=== PATIENT | female | born 1965 | race African-American/Black ===

== ENCOUNTER 2017-08-26 04:11 | Emergency (ER) | payer MEDICAID ==
[~2017-08-26] VITALS: Ht 172.7 cm; Wt 72.0 kg
[~2017-08-26 04:11] MED LIST: ALBUTEROL; ALPRAZOLAM; BENZTROPINE; CARISOPRODOL; GEODON; HYDROCONE; NIFEDIPINE; XANAX
[2017-08-26] MEDS ORDERED: ALBUTEROL (0.083%) 2.5MG/3ML NEB HHN STA (06:24)
[2017-08-26] MEDS ORDERED: IPRATROPIUM BROMIDE (0.02%) 0.5MG/2.5ML NEB HHN STA (06:24)
[2017-08-26] MEDS ORDERED: PREDNISONE 20MG TABLET PO STA (06:24)
[2017-08-26 09:20] LABS: CLARITY URINE CLEAR (CLEAR); COLOR URINE YELLOW (YELLOW); KETONES URINE NEGATIVE (NEGATIVE); LEUKOCYTE ESTERASE URINE TRACE (NEGATIVE); NITRITE URINE NEGATIVE (NEGATIVE); OCCULT BLOOD URINE NEGATIVE (NEGATIVE); PROTEIN URINE NEGATIVE (NEGATIVE); SPECIFIC GRAVITY URINE 1.015 (1.005-1.030); UROBILINOGEN URINE 0.2 E.U./dL (0.2-1.0)
[2017-08-26] MEDS ORDERED: IBUPROFEN 600MG TABLET PO ONE (10:00)
[2017-08-26 10:13] VITALS: BP 96/57
== END 2017-08-26 10:46 | disposition home or self-care (01) ==
LOC: ER 04:11
DX: R07.81 Pleurodynia (principal); J45.901 Unspecified asthma with (acute) exacerbation; I10 Essential (primary) hypertension; Y04.2XXA Assault by strike against or bumped into by another person, initial encounter; Y93.89 Activity, other specified; Y92.9 Unspecified place or not applicable
CPT/HCPCS: 71045; 81001; 81025; 94640; 99285; J7512; J7611; Z7610

== ENCOUNTER 2018-01-11 07:31 | Emergency (ER) | payer MEDICAID ==
[~2018-01-11] VITALS: Ht 172.7 cm; Wt 82.0 kg
[2018-01-11] MEDS ORDERED: ASPIRIN 81MG TABLET PO ONE (07:45)
[2018-01-11 08:00] LABS: BASOPHILS % 0.7 % (0.0-2.0); EOSINOPHILS % 1.3 % (0.0-5.0); HEMATOCRIT. 36.5 % (36.0-48.0); HEMOGLOBIN. 11.9 g/dL (12.0-16.0); LYMPHOCYTES % 29.2 % (20.0-50.0); MEAN CORPUSCULAR HEMOGLOBIN 24.3 pg (28.0-32.0); MEAN CORPUSCULAR VOLUME 74.4 fL (81.0-99.0); MEAN PLATELET VOLUME 8.2 fl (7.4-10.4); MONOCYTES % 9.7 % (2.0-8.0); NEUTROPHILS % 59.1 % (40.0-76.0); PLATELET 281 x1000/uL (130-400); RED BLOOD CELL COUNT 4.91 mill/uL (4.2-5.4); RED CELL DISTRIBUTION WIDTH 17.2 % (11.6-14.6)
[2018-01-11 08:08] LABS: INR 1.1
[2018-01-11 08:13] LABS: CHLORIDE 107 mEq/L (98-107)
[2018-01-11] MEDS ORDERED: LORAZEPAM 0.5MG TABLET PO ONE (12:00)
[2018-01-11 12:39] VITALS: BP 120/75
== END 2018-01-11 12:49 | disposition home or self-care (01) ==
LOC: ER 07:42
DX: R07.89 Other chest pain (principal); F41.9 Anxiety disorder, unspecified; D50.9 Iron deficiency anemia, unspecified; I10 Essential (primary) hypertension; F99 Mental disorder, not otherwise specified; I25.10 Atherosclerotic heart disease of native coronary artery without angina pectoris; I25.2 Old myocardial infarction
CPT/HCPCS: 36415; 71045; 80053; 83880; 84484; 85025; 85610; 93005; 99285; Z7610

== ENCOUNTER 2018-06-02 09:36 | Emergency (ER) | payer MEDICAID ==
[~2018-06-02] VITALS: Ht 165.1 cm; Wt 114.0 kg
[2018-06-02] MEDS ORDERED: SODIUM CHLORIDE 0.9% 1,000 ML IV ONE (10:25)
[2018-06-02] MEDS ORDERED: ONDANSETRON HCL 4MG/2ML INJ IV STA (10:25)
[2018-06-02] MEDS ORDERED: KETOROLAC 30MG/ML VIAL IV STA (10:25)
[2018-06-02 11:05] LABS: BASOPHILS % 1.2 % (0.0-2.0); EOSINOPHILS % 2.7 % (0.0-5.0); HEMATOCRIT. 40.3 % (36.0-48.0); HEMOGLOBIN. 13.1 g/dL (12.0-16.0); LYMPHOCYTES % 32.2 % (20.0-50.0); MEAN CORPUSCULAR HEMOGLOBIN 24.7 pg (28.0-32.0); MEAN CORPUSCULAR VOLUME 75.6 fL (81.0-99.0); MEAN PLATELET VOLUME 8.5 fl (7.4-10.4); MONOCYTES % 8.1 % (2.0-8.0); NEUTROPHILS % 55.8 % (40.0-76.0); PLATELET 296 x1000/uL (130-400); RED BLOOD CELL COUNT 5.32 mill/uL (4.2-5.4); RED CELL DISTRIBUTION WIDTH 16.6 % (11.6-14.6)
[2018-06-02 11:13] LABS: HCG SCREEN NEGATIVE
[2018-06-02 11:14] LABS: CHLORIDE 104 mEq/L (98-107)
[2018-06-02 13:31] LABS: CLARITY URINE CLEAR (CLEAR); COLOR URINE YELLOW (YELLOW); KETONES URINE NEGATIVE (NEGATIVE); LEUKOCYTE ESTERASE URINE NEGATIVE (NEGATIVE); NITRITE URINE NEGATIVE (NEGATIVE); OCCULT BLOOD URINE 1+ (NEGATIVE); PROTEIN URINE NEGATIVE (NEGATIVE); SPECIFIC GRAVITY URINE 1.011 (1.005-1.030); UROBILINOGEN URINE 0.2 E.U./dL (0.2-1.0)
[2018-06-02 14:00] VITALS: BP 102/65
== END 2018-06-02 14:28 | disposition home or self-care (01) ==
LOC: ER 10:02
DX: R10.30 Lower abdominal pain, unspecified (principal); D25.9 Leiomyoma of uterus, unspecified; I10 Essential (primary) hypertension; F41.9 Anxiety disorder, unspecified; F17.200 Nicotine dependence, unspecified, uncomplicated
CPT/HCPCS: 36415; 76856; 80053; 81003; 83690; 84703; 85025; 96374; 96375; 99285; J1885; J2405; J7030

== ENCOUNTER 2018-08-31 10:44 | Emergency (ER) | payer MEDICAID ==
[~2018-08-31] VITALS: Ht 160 cm; Wt 105.0 kg
[2018-08-31] MEDS ORDERED: KETOROLAC 60MG/2ML VIAL IM ONE (13:15)
[2018-08-31 13:49] VITALS: BP 169/74
[2018-08-31] MEDS ORDERED: IBUPROFEN 600MG TABLET PO ONE (17:15)
== END 2018-08-31 13:49 | disposition home or self-care (01) ==
LOC: ER 11:17
DX: M54.9 Dorsalgia, unspecified (principal); G89.29 Other chronic pain; M54.2 Cervicalgia; F17.200 Nicotine dependence, unspecified, uncomplicated; F12.10 Cannabis abuse, uncomplicated; J45.909 Unspecified asthma, uncomplicated; I10 Essential (primary) hypertension; Z98.890 Other specified postprocedural states; Z88.8 Allergy status to other drugs, medicaments and biological substances
CPT/HCPCS: 96372; 99283; 99406; J1885

== ENCOUNTER 2018-10-11 16:08 | Emergency (ER) | payer MEDICAID ==
[~2018-10-11] VITALS: Ht 172.7 cm; Wt 87.0 kg
[2018-10-11 16:14] VITALS: BP 128/75
== END 2018-10-11 19:06 | disposition left against medical advice (07) ==
LOC: ER 16:08
DX: Z53.21 Procedure and treatment not carried out due to patient leaving prior to being seen by health care provider (principal); I10 Essential (primary) hypertension; E78.00 Pure hypercholesterolemia, unspecified

== ENCOUNTER 2018-11-02 13:06 | Emergency (ER) | payer MEDICAID, MEDICARE ==
[~2018-11-02] VITALS: Ht 160 cm; Wt 100.0 kg
[2018-11-02 16:45] VITALS: BP 120/73
[2018-11-02] MEDS ORDERED: SODIUM CHLORIDE 0.9% 1,000 ML IV ONE (19:10)
[2018-11-02] MEDS ORDERED: ONDANSETRON HCL 4MG/2ML INJ IV ONE (19:15)
[2018-11-02] MEDS ORDERED: MORPHINE SULFATE 4 MG/ML CPJ (NOT FOR IM USE) IV ONE (19:15)
[2018-11-02 19:44] LABS: CHLORIDE 106 mEq/L (98-107)
[2018-11-02 19:48] LABS: BASOPHILS % 1.2 % (0.0-2.0); EOSINOPHILS % 2.1 % (0.0-5.0); HEMATOCRIT. 42.2 % (36.0-48.0); HEMOGLOBIN. 13.3 g/dL (12.0-16.0); LYMPHOCYTES % 23.4 % (20.0-50.0); MEAN CORPUSCULAR HEMOGLOBIN 23.8 pg (28.0-32.0); MEAN CORPUSCULAR VOLUME 75.5 fL (81.0-99.0); MEAN PLATELET VOLUME 8.9 fl (7.4-10.4); MONOCYTES % 6.7 % (2.0-8.0); NEUTROPHILS % 66.6 % (40.0-76.0); PLATELET 304 x1000/uL (130-400); RED BLOOD CELL COUNT 5.59 mill/uL (4.2-5.4); RED CELL DISTRIBUTION WIDTH 18.3 % (11.6-14.6)
== END 2018-11-02 22:47 | disposition home or self-care (01) ==
LOC: ER 13:06
DX: D25.9 Leiomyoma of uterus, unspecified (principal); E78.00 Pure hypercholesterolemia, unspecified; I10 Essential (primary) hypertension; Z98.890 Other specified postprocedural states; Z88.8 Allergy status to other drugs, medicaments and biological substances
CPT/HCPCS: 36415; 76830; 76856; 80053; 81025; 82962; 85025; 86850; 86900; 86901; 96374; 96375; 99284; J2270; J2405; J7030; Z7610

== ENCOUNTER 2018-11-09 18:20 | Emergency (ER) | payer MEDICARE ==
[~2018-11-09] VITALS: Ht 160 cm; Wt 82.0 kg
[2018-11-10] MEDS ORDERED: ONDANSETRON HCL 4MG/2ML INJ IV SCH (03:34)
[2018-11-10] MEDS ORDERED: KETOROLAC 30MG/ML VIAL IV SCH (03:34)
[2018-11-10] MEDS ORDERED: SODIUM CHLORIDE 0.9% 1,000 ML IV ONE (03:34)
[2018-11-10 03:43] LABS: BASOPHILS % 0.9 % (0.0-2.0); EOSINOPHILS % 2.7 % (0.0-5.0); HEMOGLOBIN. 12.2 g/dL (12.0-16.0); LYMPHOCYTES % 33.8 % (20.0-50.0); MEAN CORPUSCULAR HEMOGLOBIN 23.9 pg (28.0-32.0); MEAN CORPUSCULAR VOLUME 72.7 fL (81.0-99.0); MEAN PLATELET VOLUME 8.2 fl (7.4-10.4); MONOCYTES % 9.3 % (2.0-8.0); NEUTROPHILS % 53.3 % (40.0-76.0); PLATELET 373 x1000/uL (130-400)
[2018-11-10] MEDS ORDERED: FAMOTIDINE 20MG/2ML VIAL IV SCH (03:45)
[2018-11-10 03:46] LABS: CHLORIDE 106 mEq/L (98-107)
[2018-11-10 03:50] LABS: ETHANOL BLOOD < 10 mg/dL
[2018-11-10 06:34] LABS: CLARITY URINE CLEAR (CLEAR); COLOR URINE YELLOW (YELLOW); KETONES URINE NEGATIVE (NEGATIVE); LEUKOCYTE ESTERASE URINE NEGATIVE (NEGATIVE); NITRITE URINE NEGATIVE (NEGATIVE); OCCULT BLOOD URINE NEGATIVE (NEGATIVE); PROTEIN URINE NEGATIVE (NEGATIVE); SPECIFIC GRAVITY URINE 1.012 (1.005-1.030); UROBILINOGEN URINE 0.2 E.U./dL (0.2-1.0)
[2018-11-10 07:26] VITALS: BP 132/81
== END 2018-11-10 07:43 | disposition home or self-care (01) ==
LOC: ER 18:20
DX: K29.70 Gastritis, unspecified, without bleeding (principal); D25.9 Leiomyoma of uterus, unspecified; Z88.8 Allergy status to other drugs, medicaments and biological substances
CPT/HCPCS: 36415; 80053; 80320; 81003; 83690; 85025; 96361; 96374; 96375; 99283; J1885; J2405; J3490; Z7610; G0480

== ENCOUNTER 2018-12-05 00:42 | Emergency (ER) | payer MEDICARE ==
[~2018-12-05] VITALS: Ht 175.3 cm; Wt 86.0 kg
[2018-12-05] MEDS ORDERED: ONDANSETRON HCL 4MG/2ML INJ IV STA (01:16)
[2018-12-05] MEDS ORDERED: MORPHINE SULFATE 4 MG/ML CPJ (NOT FOR IM USE) IV STA (01:16)
[2018-12-05 01:29] LABS: BASOPHILS % 1.1 % (0.0-2.0); EOSINOPHILS % 0.7 % (0.0-5.0); HEMOGLOBIN. 12.1 g/dL (12.0-16.0); LYMPHOCYTES % 23.8 % (20.0-50.0); MEAN CORPUSCULAR HEMOGLOBIN 23.5 pg (28.0-32.0); MEAN CORPUSCULAR VOLUME 72.1 fL (81.0-99.0); MEAN PLATELET VOLUME 8.1 fl (7.4-10.4); MONOCYTES % 5.9 % (2.0-8.0); NEUTROPHILS % 68.5 % (40.0-76.0); PLATELET 353 x1000/uL (130-400); RED BLOOD CELL COUNT 5.13 mill/uL (4.2-5.4); RED CELL DISTRIBUTION WIDTH 18.1 % (11.6-14.6)
[2018-12-05 01:35] LABS: CHLORIDE 103 mEq/L (98-107)
[2018-12-05 02:43] LABS: CLARITY URINE CLEAR (CLEAR); COLOR URINE YELLOW (YELLOW); KETONES URINE NEGATIVE (NEGATIVE); LEUKOCYTE ESTERASE URINE NEGATIVE (NEGATIVE); NITRITE URINE NEGATIVE (NEGATIVE); OCCULT BLOOD URINE TRACE (NEGATIVE); PROTEIN URINE NEGATIVE (NEGATIVE); SPECIFIC GRAVITY URINE 1.005 (1.005-1.030); UROBILINOGEN URINE 0.2 E.U./dL (0.2-1.0)
[2018-12-05] MEDS ORDERED: KETOROLAC 30MG/ML VIAL IV ONE (02:45)
[2018-12-05] MEDS ORDERED: IOHEXOL-300 100 ML BOTTLE ONE (03:08)
[2018-12-05 05:30] VITALS: BP 121/77
== END 2018-12-05 05:30 | disposition home or self-care (01) ==
LOC: ER 00:42
DX: D25.9 Leiomyoma of uterus, unspecified (principal); R10.2 Pelvic and perineal pain; R10.84 Generalized abdominal pain; E78.00 Pure hypercholesterolemia, unspecified; I10 Essential (primary) hypertension; E03.9 Hypothyroidism, unspecified; F17.200 Nicotine dependence, unspecified, uncomplicated; E66.01 Morbid (severe) obesity due to excess calories; Z68.28 Body mass index [BMI] 28.0-28.9, adult; Z88.8 Allergy status to other drugs, medicaments and biological substances
CPT/HCPCS: 36415; 74177; 80053; 81003; 81025; 83690; 85025; 96374; 96375; 99284; J1885; J2270; J2405; Q9967; Z7610

== ENCOUNTER 2018-12-17 06:39 | Emergency (ER) | payer MEDICARE ==
[~2018-12-17] VITALS: Ht 165.1 cm; Wt 96.0 kg
[2018-12-17] MEDS ORDERED: MORPHINE SULFATE 4 MG/ML CPJ (NOT FOR IM USE) IV STA (07:12)
[2018-12-17] MEDS ORDERED: ONDANSETRON HCL 4MG/2ML INJ IV STA (07:12)
[2018-12-17 07:39] LABS: BASOPHILS % 0.8 % (0.0-2.0); EOSINOPHILS % 1.1 % (0.0-5.0); HEMATOCRIT. 36.7 % (36.0-48.0); HEMOGLOBIN. 11.8 g/dL (12.0-16.0); LYMPHOCYTES % 26.9 % (20.0-50.0); MEAN CORPUSCULAR HEMOGLOBIN 22.8 pg (28.0-32.0); MEAN CORPUSCULAR VOLUME 70.8 fL (81.0-99.0); MEAN PLATELET VOLUME 7.9 fl (7.4-10.4); MONOCYTES % 8.4 % (2.0-8.0); NEUTROPHILS % 62.8 % (40.0-76.0); PLATELET 280 x1000/uL (130-400); RED BLOOD CELL COUNT 5.19 mill/uL (4.2-5.4); RED CELL DISTRIBUTION WIDTH 18.5 % (11.6-14.6)
[2018-12-17 07:45] LABS: CHLORIDE 107 mEq/L (98-107)
[2018-12-17 07:47] LABS: PROTHROMBIN TIME 10.7 sec (9.6-11.0)
[2018-12-17 08:03] LABS: CLARITY URINE CLOUDY (CLEAR); COLOR URINE YELLOW (YELLOW); KETONES URINE NEGATIVE (NEGATIVE); LEUKOCYTE ESTERASE URINE TRACE (NEGATIVE); NITRITE URINE NEGATIVE (NEGATIVE); OCCULT BLOOD URINE NEGATIVE (NEGATIVE); PROTEIN URINE NEGATIVE (NEGATIVE); SPECIFIC GRAVITY URINE 1.018 (1.005-1.030); UROBILINOGEN URINE 0.2 E.U./dL (0.2-1.0)
[2018-12-17 09:21] VITALS: BP 133/78
== END 2018-12-17 09:39 | disposition home or self-care (01) ==
LOC: ER 06:39
DX: N39.0 Urinary tract infection, site not specified (principal); I10 Essential (primary) hypertension; I25.2 Old myocardial infarction; Z87.891 Personal history of nicotine dependence; Z79.899 Other long term (current) drug therapy
CPT/HCPCS: 36415; 74176; 80053; 81003; 83690; 85025; 85610; 93005; 96374; 96375; 99284; J2270; J2405; Z7610

== ENCOUNTER 2019-01-10 15:15 | Emergency (ER) | payer MEDICARE ==
[~2019-01-10] VITALS: Ht 170.2 cm; Wt 109.0 kg
[2019-01-10] MEDS ORDERED: KETOROLAC 30MG/ML VIAL IV STA (15:39)
[2019-01-10] MEDS ORDERED: SODIUM CHLORIDE 0.9% 1,000 ML IV ONE (15:39)
[2019-01-10] MEDS ORDERED: ONDANSETRON HCL 4MG/2ML INJ IV STA (15:39)
[2019-01-10 17:45] VITALS: BP 154/82
[2019-01-10 17:55] LABS: CHLORIDE 109 mEq/L (98-107); EOSINOPHILS % 2.1 % (0.0-5.0); HEMATOCRIT. 34.1 % (36.0-48.0); HEMOGLOBIN. 11.1 g/dL (12.0-16.0); LYMPHOCYTES % 38.1 % (20.0-50.0); MEAN CORPUSCULAR HEMOGLOBIN 23.4 pg (28.0-32.0); MEAN CORPUSCULAR VOLUME 71.9 fL (81.0-99.0); MONOCYTES % 9.3 % (2.0-8.0); NEUTROPHILS % 49.5 % (40.0-76.0); PLATELET 273 x1000/uL (130-400); RED BLOOD CELL COUNT 4.75 mill/uL (4.2-5.4); RED CELL DISTRIBUTION WIDTH 18.7 % (11.6-14.6)
== END 2019-01-10 19:28 | disposition home or self-care (01) ==
LOC: ER 15:15
DX: R10.84 Generalized abdominal pain (principal); I10 Essential (primary) hypertension; Z98.890 Other specified postprocedural states; Z88.8 Allergy status to other drugs, medicaments and biological substances
CPT/HCPCS: 36415; 74021; 80053; 83690; 84484; 85025; 93005; 96374; 96375; 99284; J2405; J7030

== ENCOUNTER 2019-02-20 09:33 | Emergency (ER) | payer MEDICARE ==
[~2019-02-20] VITALS: Ht 167.6 cm; Wt 91.0 kg
[2019-02-20 12:33] VITALS: BP 120/72
[2019-02-20] MEDS ORDERED: SODIUM CHLORIDE 0.9% 1,000 ML IV ONE (12:59)
[2019-02-20 13:40] LABS: CHLORIDE 108 mEq/L (98-107); PROTHROMBIN TIME 10.7 sec (9.6-11.0)
[2019-02-20 13:51] LABS: B-HCG QUANTITATIVE < 1 mIU/mL (<3)
[2019-02-20 14:03] LABS: BASOPHILS % 0.8 % (0.0-2.0); HEMATOCRIT. 35.8 % (36.0-48.0); HEMOGLOBIN. 11.5 g/dL (12.0-16.0); LYMPHOCYTES % 35.1 % (20.0-50.0); MEAN CORPUSCULAR HEMOGLOBIN 23.2 pg (28.0-32.0); MEAN CORPUSCULAR VOLUME 72.1 fL (81.0-99.0); MEAN PLATELET VOLUME 8.5 fl (7.4-10.4); MONOCYTES % 10.3 % (2.0-8.0); NEUTROPHILS % 49.8 % (40.0-76.0); PLATELET 271 x1000/uL (130-400); RED BLOOD CELL COUNT 4.97 mill/uL (4.2-5.4); RED CELL DISTRIBUTION WIDTH 17.9 % (11.6-14.6)
== END 2019-02-20 15:30 | disposition home or self-care (01) ==
LOC: ER 09:33
DX: D25.9 Leiomyoma of uterus, unspecified (principal); D64.9 Anemia, unspecified; E16.2 Hypoglycemia, unspecified; N93.9 Abnormal uterine and vaginal bleeding, unspecified; F17.200 Nicotine dependence, unspecified, uncomplicated; F12.10 Cannabis abuse, uncomplicated; R42 Dizziness and giddiness; I10 Essential (primary) hypertension; F20.9 Schizophrenia, unspecified; Z98.890 Other specified postprocedural states; Z79.899 Other long term (current) drug therapy; Z88.8 Allergy status to other drugs, medicaments and biological substances
CPT/HCPCS: 36415; 76830; 76856; 80053; 84702; 85025; 85610; 86850; 86900; 86901; 93005; 96360; 99284; J7030

== ENCOUNTER 2019-04-18 21:55 | Emergency (ER) | payer MEDICARE ==
[~2019-04-18] VITALS: Ht 160 cm; Wt 98.0 kg
[2019-04-19 03:06] LABS: BASOPHILS % 1.4 % (0.0-2.0); EOSINOPHILS % 2.5 % (0.0-5.0); HEMATOCRIT. 35.2 % (36.0-48.0); HEMOGLOBIN. 11.2 g/dL (12.0-16.0); LYMPHOCYTES % 31.9 % (20.0-50.0); MEAN CORPUSCULAR HEMOGLOBIN 22.8 pg (28.0-32.0); MEAN CORPUSCULAR VOLUME 71.7 fL (81.0-99.0); MEAN PLATELET VOLUME 8.5 fl (7.4-10.4); MONOCYTES % 12.2 % (2.0-8.0); PLATELET 246 x1000/uL (130-400); RED BLOOD CELL COUNT 4.91 mill/uL (4.2-5.4); RED CELL DISTRIBUTION WIDTH 18.4 % (11.6-14.6)
[2019-04-19 03:13] LABS: CHLORIDE 103 mEq/L (98-107)
[2019-04-19 04:45] VITALS: BP 128/83
== END 2019-04-19 04:54 | disposition home or self-care (01) ==
LOC: ER 22:19
DX: G89.29 Other chronic pain (principal); R07.89 Other chest pain; D50.9 Iron deficiency anemia, unspecified; E87.6 Hypokalemia; R05 Cough; I25.2 Old myocardial infarction; J45.909 Unspecified asthma, uncomplicated; F17.200 Nicotine dependence, unspecified, uncomplicated; F12.10 Cannabis abuse, uncomplicated; Z98.890 Other specified postprocedural states; Z88.8 Allergy status to other drugs, medicaments and biological substances; Z79.899 Other long term (current) drug therapy
CPT/HCPCS: 36415; 71045; 80053; 83880; 84484; 85025; 93005; 99284; Z7610

== ENCOUNTER 2019-05-08 20:04 | Emergency (ER) | payer MEDICARE ==
[~2019-05-08] VITALS: Ht 172.7 cm; Wt 82.0 kg
[2019-05-08] MEDS ORDERED: TETANUS, DIPHTHERIA, PERTUSSIS VAC/PF 0.5ML (>7YR OLD) IM ONE (20:45)
[2019-05-08] MEDS ORDERED: ACETAMINOPHEN 500MG TABLET PO ONE (21:45)
[2019-05-08 22:40] VITALS: BP 155/94
== END 2019-05-08 22:41 | disposition home or self-care (01) ==
LOC: ER 20:04
DX: S09.8XXA Other specified injuries of head, initial encounter (principal); Y08.89XA Assault by other specified means, initial encounter; Y93.89 Activity, other specified; Y92.89 Other specified places as the place of occurrence of the external cause; Y99.8 Other external cause status; F17.200 Nicotine dependence, unspecified, uncomplicated; F12.10 Cannabis abuse, uncomplicated; Z98.890 Other specified postprocedural states; Z79.899 Other long term (current) drug therapy; Z88.0 Allergy status to penicillin
CPT/HCPCS: 90471; 90715; 99284

== ENCOUNTER 2021-09-08 06:53 | Emergency (ER) | payer MEDICARE, OTHER ==
[~2021-09-08] VITALS: Ht 172.7 cm; Wt 95.0 kg
[2021-09-08] MEDS ORDERED: KETOROLAC 60MG/2ML VIAL IM ONE (08:15)
[2021-09-08] MEDS ORDERED: DIAZEPAM 5 MG TABLET PO ONE (08:15)
[2021-09-08] MEDS ORDERED: METH-773 MT (09:47)
[2021-09-08] MEDS ORDERED: IBUP-2030 MT (09:47)
[2021-09-08 10:04] VITALS: BP 134/77
== END 2021-09-08 10:20 | disposition home or self-care (01) ==
LOC: ER 06:53
DX: S30.0XXA Contusion of lower back and pelvis, initial encounter (principal); F12.10 Cannabis abuse, uncomplicated; E11.9 Type 2 diabetes mellitus without complications; J45.909 Unspecified asthma, uncomplicated; Z88.8 Allergy status to other drugs, medicaments and biological substances; X58.XXXA Exposure to other specified factors, initial encounter; Y93.89 Activity, other specified; Y92.89 Other specified places as the place of occurrence of the external cause; Y99.8 Other external cause status
CPT/HCPCS: 96372; 99283; J1885

== ENCOUNTER 2021-10-02 09:57 | Emergency (ER) | payer MEDICAID, OTHER ==
[~2021-10-02] VITALS: Ht 165.1 cm; Wt 60.0 kg
[~2021-10-02 09:57] MED LIST changes: +IBUP-2030 MT; +METH-773 MT
[2021-10-02] MEDS ORDERED: IBUPROFEN 800MG TABLET PO ONE (10:15)
[2021-10-02 11:25] VITALS: BP 114/80
[2021-10-02] MEDS ORDERED: IBUP-2029 MT (13:23)
== END 2021-10-02 13:53 | disposition home or self-care (01) ==
LOC: ER 09:57
DX: S80.12XA Contusion of left lower leg, initial encounter (principal); E11.9 Type 2 diabetes mellitus without complications; J45.909 Unspecified asthma, uncomplicated; F12.10 Cannabis abuse, uncomplicated; Z88.8 Allergy status to other drugs, medicaments and biological substances; W54.0XXA Bitten by dog, initial encounter; Y93.89 Activity, other specified; Y92.89 Other specified places as the place of occurrence of the external cause
CPT/HCPCS: 73590; 99283

== ENCOUNTER 2022-03-09 20:39 | Emergency (ER) | payer MEDICAID, OTHER ==
[~2022-03-09] VITALS: Ht 160 cm; Wt 81.0 kg
[~2022-03-09 20:39] MED LIST changes: +IBUP-2029 MT
[2022-03-10] MEDS ORDERED: TOPUD PO (12:38)
[2022-03-10 12:59] VITALS: BP 126/65
== END 2022-03-10 13:01 | disposition home or self-care (01) ==
LOC: ER 20:39
DX: M79.18 Myalgia, other site (principal); J45.909 Unspecified asthma, uncomplicated; I10 Essential (primary) hypertension; G62.9 Polyneuropathy, unspecified; Z85.9 Personal history of malignant neoplasm, unspecified; Z91.048 Other nonmedicinal substance allergy status
CPT/HCPCS: 70486; 73090; 99284

== ENCOUNTER 2022-04-06 20:56 | Emergency (ER) | payer MEDICAID, OTHER ==
[~2022-04-06] VITALS: Ht 170.2 cm; Wt 190.0 kg
[~2022-04-06 20:56] MED LIST changes: +TOPUD PO
[2022-04-06 22:13] VITALS: BP 153/89
[2022-04-07] MEDS: IBUPROFEN 600MG TABLET PO STA ×2 (08:45→08:47)
[2022-04-07] MEDS ORDERED: IBUP-2029 MT (09:27)
[2022-04-07] MEDS ORDERED: ACETAMINOPHEN 325MG TABLET PO ONE (10:45)
[2022-04-08] MEDS ORDERED: SULF1TAB48 PO (06:11)
[2022-04-08] MEDS ORDERED: NAPR-681 PO (06:11)
== END 2022-04-07 10:38 | disposition home or self-care (01) ==
LOC: ER 20:56
DX: S09.8XXA Other specified injuries of head, initial encounter (principal); E11.9 Type 2 diabetes mellitus without complications; M79.7 Fibromyalgia; I10 Essential (primary) hypertension; Y08.89XA Assault by other specified means, initial encounter; Y93.89 Activity, other specified; Y92.9 Unspecified place or not applicable; Z88.8 Allergy status to other drugs, medicaments and biological substances; Z59.00 Homelessness unspecified; Z98.890 Other specified postprocedural states
CPT/HCPCS: 99284

== ENCOUNTER 2022-04-07 21:04 | Emergency (ER) | payer OTHER ==
[~2022-04-07] VITALS: Ht 160 cm; Wt 77.0 kg
[2022-04-07 21:20] VITALS: BP 126/92
[2022-04-08] MEDS ORDERED: IBUPROFEN 600MG TABLET PO STA (01:43)
[2022-04-08 03:12] LABS: BASOPHILS % 0.6 % (0.0-2.0); EOSINOPHILS % 2.7 % (0.0-5.0); HEMATOCRIT. 40.7 % (36.0-48.0); HEMOGLOBIN. 13.2 g/dL (12.0-16.0); LYMPHOCYTES % 33.4 % (20.0-50.0); MEAN CORPUSCULAR VOLUME 83.3 fL (81.0-99.0); MEAN PLATELET VOLUME 8.3 fl (7.4-10.4); MONOCYTES % 9.9 % (2.0-8.0); NEUTROPHILS % 53.4 % (40.0-76.0); PLATELET 237 x1000/uL (130-400); RED BLOOD CELL COUNT 4.89 mill/uL (4.2-5.4); RED CELL DISTRIBUTION WIDTH 15.3 % (11.6-14.6)
[2022-04-08 03:19] LABS: CHLORIDE 109 mEq/L (98-107)
[2022-04-08 03:26] LABS: CLARITY URINE CLEAR (CLEAR); COLOR URINE YELLOW (YELLOW); KETONES URINE NEGATIVE (NEGATIVE); LEUKOCYTE ESTERASE URINE 2+ (NEGATIVE); NITRITE URINE NEGATIVE (NEGATIVE); OCCULT BLOOD URINE NEGATIVE (NEGATIVE); PROTEIN URINE NEGATIVE (NEGATIVE); SPECIFIC GRAVITY URINE 1.014 (1.005-1.030)
[2022-04-08 03:27] LABS: ETHANOL BLOOD < 10 mg/dL
[2022-04-08 03:42] LABS: *AMPHETAMINES SCREEN URINE NEGATIVE (NEGATIVE); *BARBITURATES SCREEN URINE NEGATIVE (NEGATIVE); *BENZODIAZEPINES SCREEN URINE NEGATIVE (NEGATIVE); *COCAINE SCREEN URINE PRESUMTIVE POSITIVE (NEGATIVE); CANNABINOID URINE SCREEN NEGATIVE (NEGATIVE); METHADONE URINE SCREEN NEGATIVE (NEGATIVE); OPIATES URINE SCREEN PRESUMTIVE POSITIVE (NEGATIVE); PHENCYCLIDINE URINE SCREEN NEGATIVE (NEGATIVE)
[2022-04-08] MEDS ORDERED: CEFTRIAXONE SODIUM 1 G/VIAL IM NR (05:30)
[2022-04-08] MEDS ORDERED: METRONIDAZOLE 500MG TABLET PO NR (05:30)
[2022-04-08] MEDS ORDERED: LIDOCAINE HCL 1% 10 MG/ML 10ML VIAL IJ NR ×2 (05:30→05:35)
[2022-04-08] MEDS ORDERED: ONDANSETRON HCL 4MG TABLET PO NR (05:30)
[2022-04-08] MEDS ORDERED: NAPR-681 PO (06:11)
[2022-04-08] MEDS ORDERED: SULF1TAB48 PO (06:11)
[2022-04-09] MEDS ORDERED: SULF1TAB48 PO (06:01)
[2022-04-09] MEDS ORDERED: NAPR-681 PO (06:01)
== END 2022-04-08 10:05 | disposition home or self-care (01) ==
LOC: ER 21:04
DX: R45.851 Suicidal ideations (principal); M79.604 Pain in right leg; A59.9 Trichomoniasis, unspecified; N39.0 Urinary tract infection, site not specified; F12.10 Cannabis abuse, uncomplicated; F19.10 Other psychoactive substance abuse, uncomplicated; I10 Essential (primary) hypertension; E11.9 Type 2 diabetes mellitus without complications; Z88.8 Allergy status to other drugs, medicaments and biological substances; Z79.899 Other long term (current) drug therapy
CPT/HCPCS: 36415; 80048; 80305; 80307; 80320; 80329; 81003; 85025; 93971; 99284; G0480

== ENCOUNTER 2022-04-08 23:08 | Emergency (ER) | payer OTHER ==
[~2022-04-08 23:08] MED LIST changes: +NAPR-681 PO; +SULF1TAB48 PO
[2022-04-09] MEDS ORDERED: SULF1TAB48 PO (06:01)
[2022-04-09] MEDS ORDERED: NAPR-681 PO (06:01)
== END 2022-04-09 02:50 | disposition left against medical advice (07) ==
LOC: ER 23:08
DX: Z53.21 Procedure and treatment not carried out due to patient leaving prior to being seen by health care provider (principal)

== ENCOUNTER 2022-04-09 05:24 | Emergency (ER) | payer OTHER ==
[~2022-04-09] VITALS: Ht 162.6 cm; Wt 100.0 kg
[2022-04-09] MEDS ORDERED: ACETAMINOPHEN 325MG TABLET PO STA (05:55)
[2022-04-09] MEDS ORDERED: ONDANSETRON HCL 4MG/2ML INJ IM STA (05:55)
[2022-04-09] MEDS ORDERED: CEFTRIAXONE SODIUM 1 G/VIAL IM ONE (06:00)
[2022-04-09] MEDS ORDERED: LIDOCAINE HCL 1% 20ML VIAL (Pyxis) INJ INFIL ONE (06:00)
[2022-04-09] MEDS ORDERED: METRONIDAZOLE 500MG TABLET PO ONE (06:00)
[2022-04-09] MEDS ORDERED: SULF1TAB48 PO (06:01)
[2022-04-09] MEDS ORDERED: NAPR-681 PO (06:01)
[2022-04-09] MEDS ORDERED: LIDOCAINE HCL 1% 10 MG/ML 10ML VIAL IJ NR (07:00)
[2022-04-09 07:19] VITALS: BP 135/77
== END 2022-04-09 07:21 | disposition home or self-care (01) ==
LOC: ER 05:24
DX: N39.0 Urinary tract infection, site not specified (principal); A59.9 Trichomoniasis, unspecified; M54.50 Low back pain, unspecified; E11.9 Type 2 diabetes mellitus without complications; I10 Essential (primary) hypertension; M79.7 Fibromyalgia; F12.10 Cannabis abuse, uncomplicated; Z98.890 Other specified postprocedural states
CPT/HCPCS: 96372; 99284; J0696; J2405; J3490

== ENCOUNTER 2023-09-12 22:07 | Emergency (ER) | payer MEDICAID, OTHER ==
[~2023-09-12] VITALS: Ht 160 cm; Wt 97.5 kg
[2023-09-12 22:24] VITALS: BP 134/89; PULSE 75; RESP 17; TEMP 97.7; O2SAT 98
[2023-09-13] MEDS ORDERED: ACET-2502 PO ×2 (07:07→07:08)
== END 2023-09-13 06:33 | disposition home or self-care (01) ==
LOC: ER 22:07
DX: S00.03XA Contusion of scalp, initial encounter (principal); S80.12XA Contusion of left lower leg, initial encounter; R07.89 Other chest pain; F12.10 Cannabis abuse, uncomplicated; Z98.890 Other specified postprocedural states; Z88.6 Allergy status to analgesic agent; Z79.899 Other long term (current) drug therapy; Y08.89XA Assault by other specified means, initial encounter; Y93.89 Activity, other specified; Y92.89 Other specified places as the place of occurrence of the external cause; Y99.8 Other external cause status
CPT/HCPCS: 99281; 99282